=== PATIENT | female | born 1995 | race Caucasian/White ===

== ENCOUNTER 2025-01-30 05:40 | Emergency (ER) | payer OTHER, SELFPAY ==
[2025-01-30 05:41] VITALS: BMI 23.5
[2025-01-30 05:44] VITALS: BP 127/81
[2025-01-30] MEDS: NSS 1000 IV (06:06)
[2025-01-30] MEDS: ZOFRAN 4 MG IV (06:12)
[2025-01-30 06:15] VITALS: BP 124/74
[2025-01-30 06:16] LABS: % Basophils 0.2 % (0-2); % Immature Granulocytes 0.5 % (0-0.5); % Monocytes 4.6 % (1.7-9.3); % Neutrophils 89.7 % (42.2-75.2); Absolute Immature Granulocytes 0.1 10^3/uL (0-0.05); Absolute Lymphocytes 0.6 10^3/uL (1.2-3.4); Absolute Monocytes 0.6 10^3/uL (0.1-0.6); Absolute Neutrophils 11.4 10^3/uL (1.4-6.5); Hematocrit 40.2 % (37.0-47.0); Hemoglobin 14.8 g/dL (12.0-16.0); Mean Corp Hgb Conc. 36.8 g/dL (33.0-37.0); Mean Corpuscular Hgb 29.2 pg (27.0-31.0); Mean Corpuscular Volume 79.3 fL (81.0-99.0); Nucleated Red Blood Cells % 0 %; Platelet Count 339 10^3/uL (130-400); Red Blood Cell Count 5.07 10^6/uL (4.20-5.40); Red Cell Dist. Width 12.3 % (11.5-14.5); White Blood Cell Count 12.7 10^3/uL (4.8-10.8)
[2025-01-30 06:36] LABS: HCG, Serum Qualitative Screen Negative
[2025-01-30 06:44] LABS: ALT (SGPT) 21 U/L (0-35); AST (SGOT) 23 U/L (14-36); Albumin 4.9 g/dl (3.5-5.0); Alkaline Phosphatase 103 U/L (38-126); Blood Urea Nitrogen 19 mg/dl (7-17); Calcium 10.1 mg/dl (8.4-10.2); Carbon Dioxide 15 mmol/L (22-30); Chloride 103 mmol/L (98-107); Estimated Creatinine Clearance 109 ml/min; Glucose 124 mg/dl (70-99); Lipase 47 U/L (23-300); Potassium 3.8 mmol/L (3.5-5.1); Sodium 136 mmol/L (135-145); Total Bilirubin 1.4 mg/dl (0.2-1.3); Total Protein 7.7 g/dl (6.3-8.2); eGFR > 60.00
--- NOTE | 2025-01-30 07:19 | ED.GENMED ---
History of Present Illness
General
Chief Complaint: Abdominal Symptoms
Time Seen by Provider: 01/30/25 07:11
History of Present Illness
History of Present Illness:
29-year-old female with history of Crohn's presents to the emergency department for evaluation of intractable vomiting and diarrhea for the past 2 days. Has been able to keep occasional fluids down but volume of diarrhea has been excessive.
Diarrhea is nonbloody and nonbilious. No hematemesis. Mild epigastric pain at this time that is worse after vomiting. Crohn's is managed with mesalamine. No prior abdominal surgical history
Past History
Past History
ED Past Medical History: Other (Sort of colitis and trigeminal neuralgia)
ED Past Surgical History: None
Social History
Tobacco: Non-smoker
Alcohol: Occasional
Drug: None
Personal: Single
Living: with family
Review of Systems
Review of Systems
Allergies reviewed?: Yes
All Other Systems: ROS reviewed and negative except as documented in HPI and ROS
Phy Exam
Physical Exam
Physical Exam:
GEN: Well appearing, NAD, WDWN
HEENT: Oral mucosa moist, no scleral icterus
Cardiac: Tachycardic, regular
Lung: No respiratory distress, no tachypnea
Abdomen: Soft, mild epigastric tenderness, no rigidity
MSK: No gross deformity or injuries
Skin: Good color, no pallor or jaundice, no rashes
Neuro: AO x3, moves all extremities freely
Psych: Calm, cooperative
Course
Orders/Labs/Results
Orders:
Orders
01/30/25 05:54
IV Insert/Care/Rem.- Treatment PRN
Test Result ONCE
01/30/25 06:00
0.9% Sodium Chloride 1000 ml [Nss] 1,000 ml IV BOLUS
01/30/25 06:06
C-Reactive Protein Urgent
Complete Blood Count/With Diff Urgent
Comprehensive Metabolic Panel Urgent
HCG, Serum Qualitative Screen Urgent
Comment: Notify provider if positive test present
Lipase Urgent
01/30/25 06:09
Ondansetron Injectable [Zofran] 4 mg .ROUTE .STK-MED ONE
01/30/25 06:11
Ondansetron Injectable [Zofran] 4 mg IV NOW STA
01/30/25 07:09
UA Reflex to Culture [Urinalysis Reflex To Culture] Urgent
Date Specimen was Collected: 01/30/25
Time Specimen was Collected: 07:08
Urine Microscopic Reflex Cult Urgent
01/30/25 07:18
Metoclopramide [Reglan] 10 mg IV NOW STA
01/30/25 07:19
Lactated Ringers [Lr] 1,000 ml IV BOLUS
01/30/25 08:10
Add On- LAB Urgent
Tests Added?: CRP
Abnormal Lab Results
01/30/25 01/30/25
06:06 07:09
WBC 12.7 H 10^3/uL
(4.8-10.8)
MCV 79.3 L fL
(81.0-99.0)
Abs Immat Gran (auto) 0.1 H 10^3/uL
(0-0.05)
Absolute Neuts (auto) 11.4 H 10^3/uL
(1.4-6.5)
Absolute Lymphs (auto) 0.6 L 10^3/uL
(1.2-3.4)
Neutrophils % 89.7 H %
(42.2-75.2)
Lymphocytes % 5.0 L %
(20.5-51.1)
Carbon Dioxide 15 L mmol/L
(22-30)
BUN 19 H mg/dl
(7-17)
Glucose 124 H mg/dl
(70-99)
Total Bilirubin 1.4 H mg/dl
(0.2-1.3)
C-Reactive Protein 24.50 H mg/L
(0.0-10.00)
Urine Ketones 3+ A
(Negative)
Urine Albumin (Reflex) 2+ A
(Neg - Trace)
01/30/25 06:06
01/30/25 06:06
Vital Signs
Initial and Last Documented VS:
Initial Vital Signs
Temp Pulse Resp BP Pulse Ox
97.9 F 130 24 127/81 100
01/30/25 05:44 01/30/25 05:44 01/30/25 05:44 01/30/25 05:44 01/30/25 05:44
Last Documented Vital Signs
Temp Pulse Resp BP Pulse Ox
97.9 F 115 15 106/62 100
01/30/25 05:44 01/30/25 07:30 01/30/25 07:30 01/30/25 07:38 01/30/25 07:45
MDM/Problems Addressed
MDM/Problems Addressed:
29-year-old female presents with intractable nausea and vomiting and diarrhea. Labs are reassuring, CRP is minimally elevated however not at the threshold to suspect a Crohn's flareup. Treated supportively with IV fluids and antiemetics with
marked improvement in symptoms. Tolerating p.o. at time of discharge. No indication for CT
*Critical Care Note
Total Time (30-74mins, 75-104mins- exclusive of procedures): Not Applicable
ED Attending Note
-
Portions of this chart may have been created with voice recognition software.� Occasional wrong word or��sound alike� substitutions may have occurred due to the inherent limitations of voice recognition software.
Discharge Plan
Departure
Patient Disposition: Home (Routine Discharge)
Date of Disposition: 01/30/25
Time of Disposition: 09:26
Patient with high blood pressure during this ER visit?: No
Discharge Problem:
Gastroenteritis
Instructions: Nausea and Vomiting, Adult (DC)
Prescriptions:
New
ondansetron 4 mg tablet,disintegrating
4 mg PO TIDPRN PRN (Reason: nausea/vomiting) Qty: 10 0RF
No Action
clonazepam 1 mg Tablet
1 mg PO BID
amitriptyline 50 mg Tablet
50 mg PO HS
gabapentin 800 mg Tablet
800 mg PO QID
Referrals:
UNKNOWN - PT DOES,NOT KNOW [Family Provider] -
Interventions
Interventions:
*Risk Screen - Suicide Last Done: 01/30/25 05:44
*General Assessment Last Done: 01/30/25 09:38
*Neglect/Abuse Screening Last Done: 01/30/25 05:44
*ED- Fall Risk Assessment Last Done: 01/30/25 05:44
*ED COVID-19 Vaccine History Last Done: 01/30/25 05:44
*Nursing Disposition Last Done: 01/30/25 09:38
[facility]nv[facility]kypq[facility] Assessment Last Done: 01/30/25 06:22
Discharge Date and Time
Discharge Date/Time: 01/30/25 09:39
Print Language: KENYAN
[2025-01-30 07:26] LABS: Urine Albumin 2+ (Neg - Trace); Urine Bilirubin Negative (Negative); Urine Character Clear (Clear); Urine Color Yellow; Urine Glucose Negative (Negative); Urine Ketone 3+ (Negative); Urine Leukocyte Negative (Negative); Urine Nitrite Negative (Negative); Urine Occult Blood Negative (Negative); Urine Urobilinogen Negative (Neg - 1+)
[2025-01-30] MEDS: REGLAN 10 MG IV (07:35)
[2025-01-30] MEDS: LR 1000 IV (07:36)
[2025-01-30 07:38] VITALS: BP 106/62
[2025-01-30 07:45] LABS: Urine Mucus Moderate
[2025-01-30 07:46] LABS: Urine Red Blood Cell 0-2 /HPF (0-2); Urine White Cell 0-2 /HPF (0-5)
== END 2025-01-30 09:39 | disposition home or self-care (01) ==
LOC: EMR 05:40
PROVIDERS: Student in an Organized Health Care Education/Training Program; EMERGENCY PHYSICIAN Emergency Medicine
DX: K52.9 Noninfective gastroenteritis and colitis, unspecified (principal); K50.90 Crohn's disease, unspecified, without complications; Z79.899 Other long term (current) drug therapy
CPT/HCPCS: 96374; 96375; 96361; 99284; 80053; 81003; 81015; 83690; 84703; 85025; 86140